=== PATIENT | male | born 1940 | race Caucasian/White ===

== ENCOUNTER 2016-08-10 07:14 | Inpatient (IN) | payer MEDICARE, BC ==
[2016-08-06 14:01] LABS: BASOPHILS 0.6 %; BASOPHILS ABSOLUTE 0.04 10/3/uL (0.0-0.16); EOSINOPHILS ABSOLUTE 0.53 10/3/uL (0.0-0.53); HEMATOCRIT 35.9 % (40.0-51.0); HEMOGLOBIN 11.9 g/dL (13.6-17.8); IMMATURE GRANULOCYTES 0.3 %; IMMATURE GRANULOCYTES ABSOLUTE 0.02 10/3/uL (0.0-0.11); LYMPHOCYTES 23.8 %; LYMPHOCYTES ABSOLUTE 1.57 10/3/uL (0.67-4.30); MEAN CORPUS HGB CONC 33.1 g/dL (32.0-36.0); MEAN CORPUSCULAR HEMOGLOB 30.9 pg (26.0-34.0); MEAN CORPUSCULAR VOLUME 93.2 fL (80-100); MONOCYTES 10.8 %; MONOCYTES ABSOLUTE 0.71 10/3/uL (0.21-1.20); NEUTROPHILS 56.5 %; NEUTROPHILS ABSOLUTE 3.73 10/3/uL (2.02-8.40); RBC DISTRIBUTION WIDTH 13.7 % (12.0-16.0); RED CELL COUNT 3.85 10/6/uL (4.7-6.1); WHITE BLOOD CELLS 6.6 10/3/uL (4.5-10.5)
[2016-08-06 14:03] LABS: MANUAL DIFF NO %; PLATELET COUNT 179 10/3/uL (150-400)
[2016-08-06 14:19] LABS: BUN (BLOOD UREA NITROGEN) 26 MG/DL (6-23); CHLORIDE, SERUM 108 MMOL/L (96-112); CO2 (CARBON DIOXIDE) 30 MMOL/L (24-34); CREATININE 1.54 MG/DL (0.70-1.30); GFR AFRICAN AMERICAN 51 ML/MIN (>=60); GFR NON AFRICAN AMERICAN 44 ML/MIN (>=60); POTASSIUM, SERUM 4.1 MMOL/L (3.5-5.3); SODIUM, SERUM 144 MMOL/L (135-148)
[2016-08-06 14:20] LABS: GLUCOSE, SERUM 75 MG/DL (60-99)
--- NOTE | ~2016-08-10 | HP ---
History And Physical [address] [place]. [address] NAME: MARY STUART : 42 STATUS : ADM IN PAT#: [id number] AGE: 75 ADM/REG DATE : 08/10/16 MR#: [id number] REPORT SERV DATE: 08/10/16 DICTATED BY: ANGELITO ABURTO DATE: 08/10/16 REPORT STATUS : Draft TRANSCRIBED BY: MODL DATE: 08/10/16 DATE OF ADMISSION: 08/10/2016 HISTORY: The patient is a 75-year-old male with high-grade left carotid stenosis. Recent CT scan confirmed this. The patient has residual left-sided weakness from a previous stroke. He has had no symptoms associated with his left carotid artery. He has no other current health complaints. PAST MEDICAL HISTORY: Listed in full on the MAR. MEDICATIONS: Listed in full on the MAR. ALLERGIES: LISTED IN FULL ON THE MAR. ILLNESSES: Cauterized artery disease, previous stroke, and hyperlipidemia. SURGICAL HISTORY: Endarterectomy on the right carotid. SOCIAL HISTORY: Positive for tobacco use and alcohol use. FAMILY HISTORY: Noncontributory. REVIEW OF SYSTEMS: The patient denies fever, chills, or systemic complaints. He denies chest pain, palpitations, shortness of breath, or cough. He denies any GI or complaints. PHYSICAL EXAMINATION: GENERAL: The patient is in his usual state of health, no distress. VITAL SIGNS: Blood pressure 144/66, pulse is 59. LUNGS: Clear. HEART: Regular. NEUROLOGIC: He is alert and oriented with normal motor function on the right side. Stable weakness on the left side. IMPRESSION: High-grade left carotid stenosis. Plan is for a left carotid endarterectomy. JOSE EDUARDO/TRACIE Angelito Aburto M.D. / [id number] CC: History And Physical [address] [address] NAME: MARY STUART : 42 STATUS : ADM IN PAT#: [id number] AGE: 75 ADM/REG DATE : 08/10/16 MR#: [id number] REPORT SERV DATE: 08/10/16 DICTATED BY: ANGELITO ABURTO DATE: 08/10/16 REPORT STATUS : Draft TRANSCRIBED BY: MODL DATE: 08/10/16 Angelito Aburto M.D.
--- NOTE | ~2016-08-10 | OP ---
Record Of Operation [facility] [address] [place]. [address] NAME: MARY STUART : 42 STATUS : ADM IN PAT#: [id number] AGE: 75 ADM/REG DATE : 08/10/16 MR#: [id number] REPORT SERV DATE: 08/10/16 DICTATED BY: ADRIEL SERRATO DATE: 08/10/16 REPORT STATUS : Draft TRANSCRIBED BY: MODL DATE: 08/10/16 DATE OF PROCEDURE: 08/10/2016 PREOPERATIVE DIAGNOSIS: High-grade left carotid stenosis. POSTOPERATIVE DIAGNOSIS: High-grade left carotid stenosis. PROCEDURE: Left carotid endarterectomy. SURGEON: Adriel Serrato M.D. WARDROBE STYLIST: Lb. ANESTHESIA: General. COMPLICATIONS: None. BLOOD LOSS: 75 mL. HISTORY: The patient is a 75-year-old male with history of high-grade left carotid stenosis. It was felt he would benefit from left carotid endarterectomy. This was discussed in detail with the patient and . They expressed understanding and desired to proceed. PROCEDURE IN DETAIL: The patient was taken to the operating room and placed in the supine position. He was given general anesthesia without complication. Roll was placed under the shoulders. Head was turned to the right. Incision was created on the anterior border of sternocleidomastoid muscle taking care to be more than one fingerbreadth away from the angle of the mandible. Bovie cautery was used to dissect the subcutaneous tissues and platysma. The dissection was continued to identify the anterior border of sternocleidomastoid muscle. Dissection was continued here exposing the internal jugular vein. Dissection was continued on the anterior border of the internal jugular vein. The common facial vein was identified and freed circumferentially and ligated with 0 silk ties and divided. Dissection was continued on the anterior border of the internal jugular vein exposing the carotid artery. The common carotid artery was freed circumferentially and isolated with a vessel loop. The patient was given 6000 units of heparin intravenously. Dissection was continued onto the internal carotid artery beyond the area of disease. This was freed circumferentially and isolated with a vessel loop. The external carotid artery was freed circumferentially and isolated with a vessel loop as well. After more than 3 minutes of heparinization, the internal carotid artery was controlled with a vessel loop followed by the common carotid artery and then external carotid arteries. An 11 blade was used to create an arteriotomy on the common carotid artery, which was extended longitudinally onto the internal carotid artery beyond the area of disease. A 12 shunt was placed into the internal carotid artery. Once good back bleeding was noted, this was placed in the common carotid artery restoring flow to the brain. Endarterectomy was performed in a standard fashion with feathering of the proximal and distal end point, and eversion endarterectomy on the external carotid artery. The attention was turned to the endarterectomy site and all loose debris removed Record Of Operation [facility] [id number] [place]. [address] NAME: MARY STUART : 42 STATUS : ADM IN PAT#: [id number] AGE: 75 ADM/REG DATE : 08/10/16 MR#: [id number] REPORT SERV DATE: 08/10/16 DICTATED BY: ADRIEL SERRATO DATE: 08/10/16 REPORT STATUS : Draft TRANSCRIBED BY: TRACIE DATE: 08/10/16 until this was felt to be adequate. There was a single area at the proximal endpoint with a deep endarterectomy, which was controlled with two 7-0 Prolene sutures. Once the endarterectomy site was felt to be adequate, the arteriotomy was closed using 8 x 80 bovine pericardial patch and running 6-0 Prolene suture. Prior to completion, the shunt was pulled from the lateral aspect. The internal and external carotid arteries were back bled. The common carotid artery was flushed. The endarterectomy site was copiously irrigated. The closure was completed and flow restored to the external carotid artery, then after more than five heartbeats to the internal carotid artery. Bleeding points along the closure were controlled with 6-0 Prolene suture. Doppler confirmed normal signals in the common carotid, external carotid, and internal carotid arteries. Once hemostasis was assured, the wound was irrigated and Fibrillar was placed over the closure. The deep tissues and platysma were closed with 2-0 Vicryl suture. Skin was closed 4-0 Monocryl suture and Dermabond dressing applied. The patient tolerated the procedure well. He will be extubated in the operating room and if neurologically intact, taken to recovery. JOSE EDUARDO/TRACIE Adriel Serrato M.D. / [id number] CC: Adriel Serrato M.D.
[~2016-08-10 07:14] MED LIST: AMLODIPINE PO; ASAB PO; CELEXA10 PO; DEP250 PO; LEVAQUIN750 MG PO; LIPITOR80 MG PO; MULTIPLE VIT PO; NAMENXR28 PO; NORV5 PO
== END 2016-08-11 10:38 | disposition home or self-care (01) | DRG 38 ==
LOC: SDC/OF 07:14 → PACU 12:04 → CVICU 13:28
PROVIDERS: Surgery
PROC: 03CN0ZZ Extirpation of Matter from Left External Carotid Artery, Open Approach (ICD-10-PCS; principal; 2016-08-10 09:15)
DX: I65.22 Occlusion and stenosis of left carotid artery (principal); I69.354 Hemiplegia and hemiparesis following cerebral infarction affecting left non-dominant side; J44.9 Chronic obstructive pulmonary disease, unspecified; E78.5 Hyperlipidemia, unspecified; F17.210 Nicotine dependence, cigarettes, uncomplicated; Z80.42 Family history of malignant neoplasm of prostate; Z79.899 Other long term (current) drug therapy; Z79.82 Long term (current) use of aspirin; Z86.12 Personal history of poliomyelitis; I73.9 Peripheral vascular disease, unspecified; N18.3 Chronic kidney disease, stage 3 (moderate); I12.9 Hypertensive chronic kidney disease with stage 1 through stage 4 chronic kidney disease, or unspecified chronic kidney disease
CPT/HCPCS: 80048; 85025; 87641; 88304; 88311; A9270-GY; J0690; J2250; J2370; J2405; J2710; J3010